=== PATIENT | female | born 1960 | race Caucasian/White ===

== ENCOUNTER → 2017-02-21 16:46 | Outpatient (CLI) | payer BC ==
[2013-07-01 09:09] VITALS: BMI 28.1
[~2017-02-21 16:46] MED LIST: ALEVE220 MG PO; ASPIRIN EC81 MG PO; ATENOLOL25 MG; ESTRACE2 MG; POTASSIUM20 MEQ/15; PRAVACHOL40 MG PO; PRINZIDE 10/12.1 TAB PO
== END | disposition home or self-care (01) ==
LOC: D.MAMMO 14:00
DX: R92.8 Other abnormal and inconclusive findings on diagnostic imaging of breast (principal)

== ENCOUNTER 2017-09-08 08:00 | Day surgery (SDC) | payer BC ==
[~2017-09-08] VITALS: Ht 167.6 cm; Wt 81.8 kg
[~2017-09-08 08:00] MED LIST changes: -ATENOLOL25 MG; +TENORMIN25 MG PO
[2017-09-08 08:36] LABS: BASOPHILS 0.1 % (0-2); EOSINOPHILS 0.4 % (0-7); HEMATOCRIT 34.8 % (36.0-48.0); HEMOGLOBIN 11.5 g/dL (12-16); IMMATURE GRANULOCYTES 0.2 % (0-5); LYMPHOCYTES 7.9 % (15-50); MCH 31.4 pg (26.0-34.0); MCV 95.1 fL (80.0-100.0); MEAN PLATELET VOLUME 8.6 fL (7.4-10.4); MONOCYTES 2.7 % (2-11); NEUTROPHILS 88.7 % (40-80); RBC 3.66 10x6/uL (4.00-5.40); RDW 14.1 % (11.5-14.5); WBC 16.8 10x3/uL (4.8-10.8)
[2017-09-08 08:37] LABS: PLATELET COUNT 425 10x3/uL (130-400)
[2017-09-08 08:50] LABS: ALBUMIN 3.8 g/dL (3.4-5.0); ANION GAP 16.6 mmol/L (8-16); BILIRUBIN - TOTAL 0.34 mg/dL (0.2-1.3); CALCIUM 10.2 mg/dL (8.5-10.1); CREATININE - SERUM 1.4 mg/dL (0.6-1.3); POTASSIUM - SERUM 3.6 mmol/L (3.5-5.1); PROTEIN - SERUM 7.6 g/dL (6.4-8.2)
[2017-09-08 09:54] LABS: APPEARANCE CLEAR (CLEAR); BILIRUBIN 2+ (NEGATIVE); COLOR YELLOW (YELLOW); GLUCOSE NEGATIVE (NEGATIVE); KETONE NEGATIVE (NEGATIVE); NITRITE NEGATIVE (NEGATIVE); PROTEIN 1+ mg/dL (NEGATIVE); SPECIFIC GRAVITY 1.015 (1.005-1.020); UROBILINOGEN NORMAL (NORMAL)
[2017-09-08 10:03] LABS: BACTERIA MODERATE /hpf (NONE SEEN); EPITHELIAL CELLS 0-5 /hpf (0-5); HYALINE CAST 0-5 /lpf (NONE SEEN); MUCUS <1+ /lpf (NONE SEEN); RED CELLS - URINE 0-5 /hpf (0-5)
--- NOTE | 2017-09-08 11:15 | NUR ---
RECEIVED TO ROOM 2217 FROM ER VIA . ORIENTED TO ROOM AND CALL LIGHT SYSTEM. MED REC REVIEWED. PASSWORD, EMERGENCY CONTACT, AND PHARMACY OBTAINED AND PLACED IN COMPUTER. OFFERED SCDs BUT REFUSED. CALL LIGHT IN REACH. WILL CONTINUE WITH PLAN OF CARE.
[2017-09-08] MEDS ORDERED: ULTRAM50 MG PO (11:22)
[2017-09-08] MEDS ORDERED: PREDNISONE1 MG PO (11:23)
[2017-09-08] MEDS ORDERED: OMEPRAZOLE20 M1 PO (11:25)
[2017-09-08] MEDS ORDERED: LODINE400 MG PO (11:26)
[2017-09-08] MEDS ORDERED: FOLIC ACID0.8 MG PO (11:27)
[2017-09-08] MEDS ORDERED: CRESTOR10 MG PO (11:28)
[2017-09-08] MEDS ORDERED: FLINTSTONE1 TAB.CHEW PO (11:30)
[2017-09-08] MEDS ORDERED: CALTRATE 600 M600 M1 PO (11:30)
[2017-09-08] MEDS ORDERED: FISH OIL 1,2001 CAP PO (11:30)
[2017-09-08] MEDS ORDERED: TREXALL10 MG PO (11:32)
[2017-09-08 11:38] VITALS: BP 164/72
[2017-09-08] MEDS ORDERED: MIRALAX17 GM PO (11:48)
[2017-09-08 11:51] VITALS: Ht 167.6 cm; Wt 81.8 kg
[2017-09-08] MEDS ORDERED: PLAQUENIL200 MG PO (11:52)
[2017-09-08] MEDS ORDERED: ESTROVEN PO (11:56)
--- NOTE | 2017-09-08 12:16 | NUR ---
IV OF NS INITIATED @ 200 CC/HR VIA PUMP PER MD ORDER. CALL LIGHT IN REACH.
--- NOTE | 2017-09-08 12:50 | NUR ---
DEMEROL TREND INVESTIGATOR INITIATED PER MD ORDER WITH SETTINGS .
--- NOTE | 2017-09-08 14:08 | NUR ---
STATES PAIN IS DOWN TO A 5 AT THIS TIME. FAMILY IN ROOM. CALL LIGHT IN REACH.
[2017-09-08 15:04] VITALS: BP 146/687
--- NOTE | 2017-09-08 16:36 | NUR ---
ALL IV MEDS ADMINISTERED PER ORDER. STATES SHE HAD A LARGE EPISODE OF INCONTINENT LOOSE STOOL SO SHE REFUSED THE SUPPOSITORIES. CONSENT FORMS SIGNED AND WITNESSED. REFUSES BLOOD DUE TO JEHOVAH'S WITNESS REASONS.
--- NOTE | 2017-09-08 18:10 | NUR ---
NO CHANGES IN INITIAL ASSESSMENT. CALL LIGHT IN REACH. STILL REFUSES SCDs. WILL CONTINUE WITH PLAN OF CARE.
[2017-09-08 20:00] VITALS: BP 110/54
[2017-09-09] VITALS (13 sets, daily range): BP systolic 114–137; BP diastolic 56–72
--- NOTE | 2017-09-09 03:00 | NUR ---
PATIENT HAS BEEN RESTING COMFORTABLY IN BED. SHE IS ABLE TO AMBULATE WITH SOME ABDOMINAL DISCOMFORT. NO NEEDS NOTED AT THIS TIME.
[2017-09-09 05:48] LABS: BASOPHILS 0.3 % (0-2); EOSINOPHILS 1.9 % (0-7); IMMATURE GRANULOCYTES 0.1 % (0-5); LYMPHOCYTES 19.8 % (15-50); MCH 31.5 pg (26.0-34.0); MCHC 32.5 g/dL (31.0-37.0); MEAN PLATELET VOLUME 8.7 fL (7.4-10.4); MONOCYTES 4.2 % (2-11); NEUTROPHILS 73.7 % (40-80); RDW 14.4 % (11.5-14.5)
[2017-09-09 05:53] LABS: HEMATOCRIT 26.8 % (36.0-48.0); HEMOGLOBIN 8.7 g/dL (12-16); MCV 97.1 fL (80.0-100.0); PLATELET COUNT 298 10x3/uL (130-400); RBC 2.76 10x6/uL (4.00-5.40); WBC 7.4 10x3/uL (4.8-10.8)
[2017-09-09 06:08] LABS: ANION GAP 12.1 mmol/L (8-16); CALCIUM 8.4 mg/dL (8.5-10.1); CARBON DIOXIDE 24.3 mmol/L (21.0-32.0); CREATININE - SERUM 1.4 mg/dL (0.6-1.3); MAGNESIUM - SERUM 1.7 mg/dL (1.8-2.4); POTASSIUM - SERUM 3.4 mmol/L (3.5-5.1)
[2017-09-09 06:16] LABS: APTT 30.7 SECONDS (22.8-39.4); INR 1.15 (0.85-1.17); PROTIME 14.6 SECONDS (11.6-15.0)
--- NOTE | 2017-09-09 07:52 | NUR ---
PT AOX4 RESP EVEN AND NONLABORED PT DENIES NEEDS AT THIS TIME SRX2 BED AT LOWEST SETTING CALL LIGHT WITHIN REACH WILL CONTINUE TO MONITOR IV TO LEFT HAND SL AND IV TO RIGHT HAND PATENT AND INTACT AT THIS TIME
--- NOTE | 2017-09-09 17:21 | NUR ---
GRAVES CATHETER REMOVED IN OR BY HATTIE PABON RN. 2OOCC YELLOW URINE EMPTIED.
--- NOTE | 2017-09-09 19:15 | NUR ---
RECEIVED CARE FROM DAY NURSE. PT IN MID FOWLERS POSITION. REPORTS NO NEEDS AT THIS TIME. CALL LIGHT WITHIN REACH. CONT VITALS IN PLACE FOR POST OP. IV INFUSING TO RIGHT PATENT HAND, NS.
--- NOTE | 2017-09-09 21:55 | NUR ---
ASSISSTED PT TO BATHROOM. FIRT URINE POST OP.
--- NOTE | 2017-09-10 01:41 | NUR ---
PT LYING IN BED WITH EYES CLOSED. RESP EVEN AND UNLABORED. CALL LIGHT AT SIDE. IV INFUSING PER ORDER.
--- NOTE | 2017-09-10 02:33 | NUR ---
IV IN RIGHT HAND LEAKING AT INSERTION SITE. IV FLUIDS MOVED TO LEFT HAND IV. IV IN RIGHT HAND DC'D WITH TIP INTACT. IV IN LEFT HAND LEAKING AT INSERTION SITE. DC'D WITH TIP INTACT. RESITED TO LEFT HAND 22 GAUGE X1 STICK WITH GOOD BLOOD RETURN NOTED.
[2017-09-10 05:22] VITALS: BP 139/76
--- NOTE | 2017-09-10 07:30 | NUR ---
REPORT RECEIVED. RR EVEN AND UNLABORED. PT DENIES NEEDS AT THIS TIME, DEMORAL RANGER AIDE BEING DELIVERED TO PT. PT IS ALERT AND ORIENTED. WILL CTM.
[2017-09-10 08:13] VITALS: BP 131/69
[2017-09-10] MEDS ORDERED: MEPERIDINE HCL50 MG PO (08:34)
--- NOTE | 2017-09-10 09:45 | NUR ---
PTS PHARMACY CASHIER SYRINGE IS COMPLETE. DUE TO PT BEING DISCHARGED TODAY, WILL NOT START ANOTHER SYRINGE. PT VERBALIZED UNDERSTANDING. DENIES FURTHER NEEDS. WILL CTM AND GIVE PRN PAIN MEDS ORDERED. SYRINGE IS COMPLETELY EMPTY, NO NEED FOR WASTE. WILL CTM.
--- NOTE | 2017-09-10 12:49 | NUR ---
PT DISCHARGED. D/C INSTRUCTIONS PROVIDED, WITH ONE WRITTEN PRESCRIPTION GIVEN TO PT. PT VERBALIZED UNDERSTANDING AFTER D/C TEACHING PROVIDED. PT DENIES FURTHER NEEDS. IV REMOVED WITH CATHETER TIP INTACT, DRESSING APPLIED. PT WILL BE GOING HOME WITH FAMILY MEMBER IN PERSONAL VEHICLE. WILL CALL WHEN READY TO LEAVE FLOOR VIA WHEELCHAIR. WILL CTM UNITL PT LEAVES FLOOR.
--- NOTE | 2017-09-10 13:10 | NUR ---
FAMILY MEMBER HERE TO TAKE PT HOME. DENIES FURTHER NEEDS, VERBALIZED SATISFACTION WITH CARE. PT LEFT FLOOR VIA WHEELCHAIR.
== END 2017-09-10 13:22 | disposition home or self-care (01) ==
LOC: OBSVTIME → D.OPS 08:00 → D.ER 08:00 → OBSVTIME 10:45 → D.MS 10:45 → D.ER 10:45 → EDSTATUS 09-09 13:15 → D.MS 09-10 13:22 → D.OPS 09-10 13:22 → D.MS 09-10 13:22
PROVIDERS: Family Medicine; Surgery
DX: K35.3 Acute appendicitis with localized peritonitis (principal); I10 Essential (primary) hypertension; K21.9 Gastro-esophageal reflux disease without esophagitis; M06.9 Rheumatoid arthritis, unspecified; K52.9 Noninfective gastroenteritis and colitis, unspecified; R11.2 Nausea with vomiting, unspecified

== ENCOUNTER → 2018-04-24 10:30 | Outpatient (CLI) | payer BC ==
[2017-09-08 11:51] VITALS: BMI 29.1
[~2018-04-24 10:30] MED LIST changes: +CALTRATE 600 M600 M1 PO; +CRESTOR10 MG PO; +ESTROVEN PO; +FISH OIL 1,2001 CAP PO; +FLINTSTONE1 TAB.CHEW PO; +FOLIC ACID0.8 MG PO; +LODINE400 MG PO; +MEPERIDINE HCL50 MG PO; +MIRALAX17 GM PO; +OMEPRAZOLE20 M1 PO; +PLAQUENIL200 MG PO; +PREDNISONE1 MG PO; +TREXALL10 MG PO; +ULTRAM50 MG PO
== END | disposition home or self-care (01) ==
LOC: D.MAMMO 10:30
DX: Z12.31 Encounter for screening mammogram for malignant neoplasm of breast (principal)

== ENCOUNTER 2019-05-12 17:00 | Outpatient (CLI) | payer BC ==
[2017-09-08 11:51] VITALS: BMI 29.1
== END 2019-05-12 17:30 | disposition home or self-care (01) ==
LOC: D.MAMMO 17:00
PROVIDERS: ATTEND Family Medicine
DX: Z12.31 Encounter for screening mammogram for malignant neoplasm of breast (principal)

== ENCOUNTER → 2020-05-10 09:56 | Outpatient (CLI) | payer OTHER ==
[2017-09-08 11:51] VITALS: BMI 29.1
== END | disposition home or self-care (01) ==
LOC: D.RAD 09:56
PROVIDERS: ATTEND Pediatrics
DX: Z02.71 Encounter for disability determination (principal)

== ENCOUNTER → 2020-05-13 10:15 | Outpatient (CLI) | payer BC ==
[2017-09-08 11:51] VITALS: BMI 29.1
== END | disposition home or self-care (01) ==
LOC: D.MAMMO 10:15
PROVIDERS: ATTEND Nurse Practitioner Family
DX: Z12.31 Encounter for screening mammogram for malignant neoplasm of breast (principal)